=== PATIENT | female | born 1945 | race Asian ===

== ENCOUNTER 2017-05-01 20:38 | Inpatient (IN) | payer MEDICARE ==
[~2017-05-01] VITALS: Ht 162.6 cm; Wt 61.7 kg
[2017-05-01] MEDS ORDERED: MAGNESIUM HYDROXIDE 30 ML UDC PO PRN (22:00)
[2017-05-01] MEDS ORDERED: MAG HYDROX/AL HYDROX/SIMETH 30 ML UDC PO PRN (22:00)
[2017-05-01] MEDS ORDERED: clonazePAM 0.5 MG TABLET PO PRN (22:00)
[2017-05-01] MEDS ORDERED: ACETAMINOPHEN 325 MG TABLET PO PRN (22:00)
[2017-05-01] MEDS ORDERED: TEMAZEPAM 7.5 MG CAPSULE PO PRN (22:00)
[2017-05-01] MEDS ORDERED: TEMAZEPAM 7.5 MG CAPSULE ONE (22:06)
[2017-05-01] MEDS ORDERED: TRAZODONE 50 MG TABLET ONE (22:15)
[2017-05-01] MEDS ORDERED: TRAZODONE 50 MG TABLET PO SCH (22:30)
[2017-05-01] MEDS ORDERED: TRAZ-144 PO (23:02)
[2017-05-01] MEDS ORDERED: INSU100V SQ (23:02)
[2017-05-01] MEDS ORDERED: ACET325T53 PO (23:02)
[2017-05-01] MEDS ORDERED: HEPA SQ (23:02)
[2017-05-01] MEDS ORDERED: METF500T4 PO (23:02)
[2017-05-01] MEDS ORDERED: ATOR40TA PO (23:02)
[2017-05-01] MEDS ORDERED: TIMO5DRO4 EACHEYE (23:02)
[2017-05-01] MEDS ORDERED: DOCU-170 PO (23:02)
[2017-05-01] MEDS ORDERED: HYDR-3326 PO (23:02)
[2017-05-01] MEDS ORDERED: LISI2.5T2 PO (23:02)
[2017-05-01] MEDS ORDERED: MIRT15TA7 PO (23:02)
[2017-05-01] MEDS ORDERED: LORA2TAB PO (23:02)
[2017-05-02 06:56] LABS: ALANINE AMINOTRANSFERASE 94 U/L (12-78); ALBUMIN 3.5 g/dL (3.4-5.0); ALKALINE PHOSPHATASE 65 U/L (46-116); ASPARTATE AMINOTRANSFERASE 45 U/L (15-37); BILIRUBIN,TOTAL 0.6 mg/dL (0.2-1.0); CALCIUM, SERUM 9.3 mg/dL (8.5-10.1); CARBON DIOXIDE 28 mmol/L (21-32); CHLORIDE 107 mmol/L (98-107); CREATININE 0.8 mg/dL (0.6-1.3); GLUCOSE 117 mg/dL (74-106); POTASSIUM 4.2 mmol/L (3.5-5.1); SODIUM SERUM 143 mmol/L (136-145); TOTAL PROTEIN, SERUM 6.6 g/dL (6.4-8.2); UREA NITROGEN, BLOOD 11 mg/dL (7-18)
[2017-05-02 07:00] LABS: CHOLESTEROL 186 mg/dL (<200); HDL CHOLESTEROL 46 mg/dL (40-60); LDL 104 mg/dL (0-99); TRIGLYCERIDES 165 mg/dL (30-150)
[2017-05-02] MEDS ORDERED: HYDR-552 PO (07:47)
[2017-05-02] MEDS ORDERED: MIRTAZAPINE 15 MG TABLET PO SCH (22:00)
== END 2017-05-02 11:30 | disposition home or self-care (01) | DRG 885 ==
LOC: GPS 21:20
PROVIDERS: ADMIT Psychiatry & Neurology Psychiatry; ATTEND Internal Medicine
DX: F33.1 Major depressive disorder, recurrent, moderate (principal); E11.9 Type 2 diabetes mellitus without complications; I10 Essential (primary) hypertension; E78.00 Pure hypercholesterolemia, unspecified; G89.29 Other chronic pain; M19.90 Unspecified osteoarthritis, unspecified site; F41.9 Anxiety disorder, unspecified
CPT/HCPCS: 36415; 80048-TC; 80053-TC; 80061-TC; 87081-TC